=== PATIENT | male | born 1945 | race Caucasian/White ===

== ENCOUNTER 2024-08-13 08:11 | Outpatient (CLI) | payer MEDICARE, OTHER, SELFPAY ==
--- NOTE | ~2024-08-13 | XR_ITS ---
3 VIEWS LUMBAR SPINE Ordering provider: Jimbo Larios, SCOOP DRIVER History: . Lumbar spondylosis . Comparison: None. FINDINGS: VERTEBRAL BODIES: No visible fracture or subluxation. Degenerative changes of the spine. DISK SPACES: Narrowing of the disc L3-L4 and L5-S1. SOFT TISSUES: Aortic calcifications. IMPRESSION: No acute osseous abnormality lumbar spine. Reviewed, dictated and finalized at location A.
--- NOTE | ~2024-08-13 | XR_ITS ---
3 VIEWS THORACIC SPINE Ordering provider: Jimbo Larios, COMPRESSOR STATION ENGINEER History: . Thoracic back pain . Comparison: None. FINDINGS: VERTEBRAL BODIES: Normal height and alignment. No visible fracture or subluxation. Degenerative ludwig es of the spine. DISK SPACES: Narrowing of the disc spaces in the upper and lower thoracic area. SOFT TISSUES: Normal. IMPRESSION: No acute osseous abnormality of the thoracic spine. Reviewed, dictated and finalized at location A.
== END 2024-08-13 08:12 | disposition home or self-care (01) ==
PROVIDERS: PCP Nurse Practitioner Family; Visit Provider Nurse Practitioner Family
DX: M54.6 Pain in thoracic spine (principal); M47.816 Spondylosis without myelopathy or radiculopathy, lumbar region
CPT/HCPCS: 72072; 72110